=== PATIENT | female | born 1940 | race Caucasian/White ===

== ENCOUNTER 2017-02-18 18:32 | Inpatient (IN) | payer MEDICARE, MEDICAID ==
[~2017-02-18] VITALS: Ht 152.4 cm; Wt 98.2 kg
--- NOTE | ~2017-02-18 | OP ---
PATIENT NAME: ANDERSON BERRIOS MEDICAL RECORD: [id number] :36 LOCATION:[facility] ADMISSION DATE:02/18/17 SURGEON: JESICA WALL MD DATE OF OPERATION: 02/19/2017 PREOPERATIVE DIAGNOSES: 1. Strangulated umbilical hernia. 2. Incarcerated hernias times 2. 3. Strangulated umbilical hernia times 1. PROCEDURES: 1. Exploratory laparotomy. 2. Partial omentectomy 3. Ventral herniorrhaphies times 3. 4. Excisional debridement of the abdominal wall. SURGEON: Jesica Wall MD OIL SALES AND SERVICE REP: None. BLOOD LOSS: 300 cc. ANESTHESIA: General. COMPLICATIONS: None. The risks, possible complications and alternatives to procedure were discussed with the patient. She elects to proceed. The patient has an irreducible hernia. OPERATIVE COURSE: The patient was conveyed to the operating room urgently on 02/19/2017. General anesthesia was induced by the anesthesia staff. It was going to be necessary to excise the patient's umbilicus as it was very thin and it appeared that the underlying contents of the hernia sac were going to erode through this very thin umbilical skin. Through the use of double curvilinear incisions, I excised skin and subcutaneous tissue around the umbilicus as well as the umbilicus. I entered the hernia sac sharply. A great amount of pus was present. Cultures were obtained. Although there was a loop of colon within the umbilical hernia, it was viable. There was nonviable omentum. This omentum was removed. This was a partial omentectomy. The infected and necrotic omentum was the only portion of the omentum that I removed. I did this utilizing the EnSeal device. I then continued my dissection cephalad. I identified 2 other hernias that contained incarcerated omentum. The omentum was reduced in their entireties. The hernia sacs were excised. I irrigated with hydrogen peroxide. I attenuated fascia as well as preperitoneal fat was excised in a piecemeal fashion with electrocautery. I then cleaned the fascia from the overlying adipose tissue. Some additional portions of necrotic adipose tissue were excised in a piecemeal fashion. I excised back to healthy bleeding tissue. The fascia was closed in the midline. This was the herniorrhaphy part of the procedure. The fascia was closed with a running horizontal mattress #1 PDS from the cephalad and caudad directions. I then oversewed this fascial closure with a running #1 Vicryl. A 19-Luxembourger closed suction drain was brought out through a stab incision in the OPERATIVE REPORT [id number] ANDERSON BERRIOS left side of the abdomen. I irrigated again with hydrogen peroxide into the wound. The subcutaneous adipose tissue was closed with interrupted 3-0 Vicryl. I then loosely closed some of the skin with multiple interrupted vertical mattress, 2-0 nylons and 2-0 Nurolons. I spaced these out a good bit to allow for any pus to have a chance to exit the wound. The drain was sutured to skin with a 2-0 nylon. A sterile dressing was applied. The patient was then extubated and conveyed to post-anesthesia care unit. She will be transferred back to the intensive care unit. TRANSINT:[id number] Voice Confirmation ID: [id number] DOCUMENT ID: [id number] JESICA WALL MD at 0938 CC: DOROTHY DE LA CRUZ MD and RAHEEL TRAN MD [id number] DICTATION DATE: 02/19/172000 HOT BLASTER: 02/20/17 0033 ADM IN [facility] [address] [place] [address]
--- NOTE | ~2017-02-18 | DS ---
PATIENT:ANDERSON BERRIOS :36 MEDICAL RECORD: [id number] DISCHARGE SUMMARY ADMISSION DATE: 02/18/17 DISCHARGE DATE: 02/27/17 PREOPERATIVE DIAGNOSES: 1. Strangulated umbilical hernia. 2. Incarcerated ventral hernia repair without mesh. 3. 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 OTHER DIAGNOSES: 1. Hypothyroidism, on replacement therapy. 2. Hypertension. 3. Coronary artery disease. 4. Asthma. 5. CPAP or BiPAP. 6. Gastroesophageal reflux. 7. Alzheimer dementia. 8. Anxiety disorder. 9. History of bladder sling. 10. History of pacemaker. HOSPITAL COURSE: The patient was admitted through the Emergency Room. The patient underwent the above operative procedure. She has an ileus postoperatively, which resolved. Her diet was advanced. She was found to have metastatic adenocarcinoma within the omentum. I spoke to the patient's family. They have elected for no further diagnostic treatments or therapies. The patient is really not a candidate for chemotherapy. I spoke to not only the power of banking attorney, but also with the patient's . TRANSINT:[id number] Voice Confirmation ID: [id number] DOCUMENT ID: [id number] JESICA WALL MD at 1212 CC: WARNER KING MD [id number] DICTATION DATE: 02/27/17 1507 PAPER SLITTER: 02/28/17 1117 DIS IN 02/27/17 [id number] [place] [address]
--- NOTE | ~2017-02-18 | HP ---
PATIENT: ANDERSON BERRIOS MEDICAL RECORD: [id number] ACCOUNT: [id number] LOCATION:[facility] : 36 ADMISSION DATE: 02/18/17 HISTORY AND PHYSICAL EXAMINATION CHIEF COMPLAIN: Pain. HISTORY OF PRESENT ILLNESS: The patient arrived by EMS. She is a snf patient. She is unable to really provide me with any history at all. She has an incarcerated hernia. On CT scan, there was evidence of strangulation. It appears that perhaps a side wall of her colon is present within this hernia. The hernia is large. There is overlying erythema. The patient has very thin skin within this umbilical hernia. I think this is to the stage where it may erode soon. I am planning for an urgent operation on this patient. The patient may require a bowel resection or a colostomy. I have explained the risks, possible complications, alternatives to the procedure. The hernia is not reducible. It is tender. She describes the pain as moderate in severity. Palpation aggravates. Nothing alleviates. REVIEW OF SYSTEMS: Unobtainable due to a poor short-term memory and decreased evidence of higher cortical function. SOCIAL HISTORY: Negative for alcohol or tobacco abuse. MEDICATIONS AT THE JAIL: Crestor, losartan, MiraLax, Namenda, oxybutynin, potassium, ProAir, ProMod, Protonix, Singulair, Synthroid, vitamin E, Seroquel, Paxil, Hazard, Tylenol, guaifenesin, ibuprofen, milk of magnesia, Mylanta, and simethicone. ALLERGIES: ASPIRIN, IODINE, AND PEANUTS. PAST MEDICAL AND SURGICAL HISTORY: Hyperlipidemia, constipation, dementia, COPD, gastroesophageal reflux disease, hypothyroidism, on replacement therapy, depression. PHYSICAL EXAMINATION: GENERAL: The patient appears acutely ill. Also appears chronically ill. VITAL SIGNS: Reviewed. The entire physical examination was performed with the presence of a female nurse. EARS: External ears appear normal. EYES: Extraocular movements are intact. NECK: Trachea is midline. CHEST: No intercostal retractions. PULMONARY: Nonlabored, decreased breath sounds in the bases. ABDOMEN: As described above. There is peritonitis to percussion. EXTREMITIES: Pitting edema at the ankles. PSYCHIATRIC: Normal affect. NEUROLOGIC: Evidence of decreased higher cortical functioning. BACK: No thoracic kyphosis. LYMPHATICS: No lymphangitic streaking of the exposed extremities. INTEGUMENT: Erythema around the umbilical hernia. IMPRESSION: Strangulated umbilical hernia. PLAN: Exploratory laparotomy, probable bowel resection, and repair of the HISTORY AND PHYSICAL [id number] ANDERSON BERRIOS umbilical hernia. TRANSINT:[id number] Voice Confirmation ID: [id number] DOCUMENT ID: [id number] JESICA WALL MD at 0938 CC: RAHEEL TRAN MD [id number] DICTATION DATE: 02/19/17 1003 ELECTRICAL AND INSTRUMENTATION MANAGER: 02/19/17 1412 ADM IN [facility] [address] [place] [address]
[~2017-02-18 18:32] MED LIST: ALBUTEROL2.5 MG/0.5 UPD; BUSPAR5 MG PO; CIPRO500 MG PO; COLACE100 MG PO; CRESTOR10 MG PO; DILAUDID2 MG IV; HYDROCODON-ACE1 EAC7 PO; HYZAAR 50-12.51 TAB PO; LEVAQUIN500 MG PO; MIRALAX17 GM PO; ONDANSETRON4 MG/2 M3 IV; PEPCID20 MG PO; PHENERGAN25 M1 PO; PREPARATION H O57 GM RC; PROAIR HFA8.5 GM INH; PROTONIX 40 MG40 MG IV; SINGULAIR10 MG PO; SLOW-MAG 64 MG64 MG PO; SODIUM CL 0.91000 ML IV; SYNTHROID50 MCG PO; TYLENOL 325 MG325 MG PO; VESICARE10 MG PO
[2017-02-18 19:29] LABS: BASOPHILS 0.1 % (0-2); EOSINOPHILS 0 % (0-7); HEMOGLOBIN 11.8 g/dL (12-16); IMMATURE GRANULOCYTES 0.2 % (0-5); MCHC 32.8 g/dL (31.0-37.0); MCV 85.5 fL (80.0-100.0); MEAN PLATELET VOLUME 9.3 fL (7.4-10.4); MONOCYTES 9.1 % (2-11); NEUTROPHILS 85.6 % (40-80); PLATELET COUNT 216 10x3/uL (130-400); RBC 4.21 10x6/uL (4.00-5.40); WBC 15.3 10x3/uL (4.8-10.8)
[2017-02-18 20:00] LABS: ALBUMIN 2.8 g/dL (3.4-5.0); BILIRUBIN - TOTAL 0.9 mg/dL (0.2-1.3); CALCIUM 9.1 mg/dL (8.5-10.1); CARBON DIOXIDE 24.5 mmol/L (21.0-32.0); CREATININE - SERUM 1.1 mg/dL (0.6-1.3); POTASSIUM - SERUM 3.5 mmol/L (3.5-5.1); PROTEIN - SERUM 6.5 g/dL (6.4-8.2)
[2017-02-18 22:00] VITALS: BP 137/85
[2017-02-18 22:50] VITALS: BP 137/85; BMI 41.4
[2017-02-18 23:00] VITALS: BP 171/67
[2017-02-19] VITALS (25 sets, daily range): BP systolic 110–156; BP diastolic 62–710; BMI 41.5
[2017-02-19] MEDS ORDERED: XALATAN 0.0052.5 ML EACH EYE (02:16)
[2017-02-19] MEDS ORDERED: NAMENDA10 MG PO (02:18)
[2017-02-19] MEDS ORDERED: OXYBUTYNIN CHLOR5 MG PO (02:19)
[2017-02-19] MEDS ORDERED: K-TAB10 MEQ PO (02:20)
[2017-02-19] MEDS ORDERED: PROAIR HFA8.5 GM INH (02:21)
[2017-02-19] MEDS ORDERED: PROMOD LIQUID P30 M1 PO (02:24)
[2017-02-19] MEDS ORDERED: PROTONIX20 MG PO (02:26)
[2017-02-19] MEDS ORDERED: VITAMIN E200 UNI1 PO (02:28)
[2017-02-19] MEDS ORDERED: SEROQUEL25 MG PO (02:29)
[2017-02-19] MEDS ORDERED: MAG 6464 MG PO (02:30)
[2017-02-19] MEDS ORDERED: PAXIL10 MG PO (02:31)
[2017-02-19] MEDS ORDERED: IBUPROFEN200 MG PO (02:34)
[2017-02-19] MEDS ORDERED: MILK OF MAGNESI30 ML PO (02:36)
[2017-02-19] MEDS ORDERED: MYLANTA / MAALO30 ML PO (02:39)
[2017-02-19 11:13] LABS: APPEARANCE HAZY (CLEAR); COLOR YELLOW (YELLOW); SPECIFIC GRAVITY 1.015 (1.005-1.020)
[2017-02-19 11:14] LABS: AMORPHOUS SEDIMENT <1+ /lpf (NONE SEEN); BACTERIA MODERATE /hpf (NONE SEEN); BILIRUBIN NEGATIVE (NEGATIVE); GLUCOSE NEGATIVE (NEGATIVE); KETONE SMALL mg/dL (NEGATIVE); MUCUS <1+ /lpf (NONE SEEN); NITRITE NEGATIVE (NEGATIVE); PROTEIN 1+ mg/dL (NEGATIVE); UROBILINOGEN NORMAL (NORMAL); WHITE CELLS - URINE 0-5 /hpf (0-5)
[2017-02-19 11:15] LABS: GRANULAR CAST RARE /lpf (NONE SEEN)
[2017-02-20] VITALS (16 sets, daily range): BP systolic 114–157; BP diastolic 66–87
[2017-02-21] VITALS: BP 132/61
[2017-02-21 04:00] VITALS: BP 140/55
[2017-02-21 08:56] VITALS: BP 158/58
[2017-02-21 11:49] VITALS: BP 158/64
[2017-02-21 16:41] VITALS: BP 157/72
[2017-02-21 20:00] VITALS: BP 159/74
[2017-02-22] VITALS: BP 159/68
[2017-02-22 04:00] VITALS: BP 166/70
[2017-02-22 08:45] VITALS: BP 159/74
[2017-02-22 12:37] VITALS: BP 109/84
[2017-02-22 16:14] VITALS: BP 170/80
[2017-02-22 20:00] VITALS: BP 147/82
[2017-02-23] VITALS: BP 158/83
[2017-02-23 04:46] VITALS: BP 161/70
[2017-02-23 06:05] LABS: ANION GAP 13.1 mmol/L (8-16); CALCIUM 8.1 mg/dL (8.5-10.1); CARBON DIOXIDE 25.4 mmol/L (21.0-32.0)
[2017-02-23 06:29] LABS: POTASSIUM - SERUM 2.5 mmol/L (3.5-5.1)
[2017-02-23 08:45] VITALS: BP 187/83
[2017-02-23 12:32] VITALS: BP 170/77
[2017-02-23 16:27] VITALS: BP 174/64
[2017-02-23 16:28] VITALS: Ht 152.4 cm; Wt 98.2 kg
[2017-02-23 20:00] VITALS: BP 152/76
[2017-02-24 08:49] VITALS: BP 169/79
[2017-02-24 12:59] VITALS: BP 171/80
[2017-02-24 16:45] VITALS: BP 117/69
[2017-02-24 20:00] VITALS: BP 166/79
[2017-02-25] VITALS: BP 158/87
[2017-02-25 04:00] VITALS: BP 147/78
[2017-02-25 08:42] VITALS: BP 180/76
[2017-02-25 11:51] VITALS: BP 133/58
[2017-02-25 15:39] VITALS: BP 156/77
[2017-02-25 21:31] VITALS: BP 168/97
[2017-02-26 01:38] VITALS: BP 172/74
[2017-02-26 07:46] VITALS: BP 185/95
[2017-02-26 08:45] VITALS: BP 155/88
[2017-02-26 12:37] VITALS: BP 146/81
[2017-02-26 13:13] LABS: CEA 4.4 ng/mL (0.0-4.7)
[2017-02-26 17:51] VITALS: BP 129/67
[2017-02-26 20:00] VITALS: BP 148/89
[2017-02-27 04:00] VITALS: BP 157/82
[2017-02-27 09:29] VITALS: BP 157/73
[2017-02-27 14:18] VITALS: BP 118/66
== END 2017-02-27 17:45 | disposition home health service (06) | DRG 354 ==
LOC: D.ER 18:32 → D.MS 20:53 → D.ICU 20:53 → D.MS 02-20 20:04
PROVIDERS: Emergency Medicine; Family Medicine; Internal Medicine Hematology & Oncology
PROC: 0WQF0ZZ Repair Abdominal Wall, Open Approach (ICD-10-PCS; principal; 2017-02-18)
PROC: 0DBU0ZZ Excision of Omentum, Open Approach (ICD-10-PCS; 2017-02-18)
PROC: 0WBF0ZZ Excision of Abdominal Wall, Open Approach (ICD-10-PCS; 2017-02-18)
DX: K42.0 Umbilical hernia with obstruction, without gangrene (principal); C78.6 Secondary malignant neoplasm of retroperitoneum and peritoneum; K56.7 Ileus, unspecified; C56.9 Malignant neoplasm of unspecified ovary; E78.5 Hyperlipidemia, unspecified; J44.9 Chronic obstructive pulmonary disease, unspecified; K21.9 Gastro-esophageal reflux disease without esophagitis; E03.9 Hypothyroidism, unspecified; I25.10 Atherosclerotic heart disease of native coronary artery without angina pectoris; E87.6 Hypokalemia; F41.9 Anxiety disorder, unspecified; I10 Essential (primary) hypertension; G30.9 Alzheimer's disease, unspecified; F02.80 Dementia in other diseases classified elsewhere, unspecified severity, without behavioral disturbance, psychotic disturbance, mood disturbance, and anxiety; Z95.0 Presence of cardiac pacemaker; Z66 Do not resuscitate